=== PATIENT | female | born 1935 | race Caucasian/White ===

== ENCOUNTER 2019-12-01 07:45 | Day surgery (SDC) | payer MEDICARE, OTHER ==
[~2019-12-01] VITALS: Ht 160 cm; Wt 64.0 kg
[~2019-12-01 07:45] MED LIST: ALBU90OI INH; ATEN25; ATOR10; ATOR10 PO; ATORVASTATIN CA10 MG PO; Adult Low Dose81 MG PO; CALCA500CH PO; Carvedilol3.125 MG PO; DIGO.125; DOCU100; DOCU100 PO; DOXY100 PO; FLUSAL2505 INH; FURO20 PO; Flonase 0.05% N16 GM; Flovent Diskus50 MCG; HYDR1TAB94 PO; LEVO750 PO; LISI5 PO; OXYACE5T; POTA10T PO; PRED10 PO; PROAIR RESPICL90 MCG INH; Symbicort 16010.2 GM; THERA-D2000 UNIT PO; WARF2 PO; WARF2.5; WARF2.5 PO; WARF3 PO; WARF5; WARF5 PO
[2019-12-01 09:12] LABS: International Normalized Ratio 1.11; Prothrombin Time Results 11.8 Sec (9.7-11.5)
--- NOTE | 2019-12-01 14:49 | NUR ---
MANUAL PRESSURE HELD TO SITE [id number]. NO BLEEDING, OOZING OR HEMATOMA NOTED. KAMERON PATCH PLACED OVER SITE. PT REMINDED TO LAY FLAT AND NOT TO LIFT UP HER HEAD TO PREVENT BLEEDING. PT AWAITING ADMISSION TO PCU. WILL CONTINUE TO MONITOR WHILE IN THE [facility]ART [facility] RECOVER ROOM.
--- NOTE | 2019-12-01 14:59 | NUR ---
1500 Patient transafered to PCU #8 post sheath removeal. SBAR given at the bedside. RFA CDI with hannah patch in place. R brachial with tegaderm and hannah in place, CDI. Left radial with TR band in place and no air left in place at this time. VVS, A fib, note, Pulses palpable +1 DP and PT bilaterally. Family was here and went home, number on the chart for discharge tomorrow.
--- NOTE | 2019-12-01 15:26 | NUR ---
ARRIVAL TO UNIT Assumed care of pt upon arrival to unit at 1515. Bedside report received from heart center staff member. Pt transferred from [facility] to [facility] usling slider sheet and four staff members. Pt has left transradial site with deflated TR band in place. Per report, TR band deflated at 1500. Pt has right femoral artery access with Ross patch in place. Per report, hemostasis acheived at 1440 after manual pressure held. Dressing C/D/I. Site free of bruising, drainage, or hematoma. Color, sensation, pulses, capillary refill equal BUE and BLE. Pt has right brachial venous access from right heart cath. Site covered with tegaderm CHG. No drainage noted from site. 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 Per report, procedure done by Dr Tello. Activity restrictions for left arm and right groin reviewed with pt. Pt verbalized understanding and repeated back instrucitons. Bed in lowest position. Call light in reach. Pt denies need at this time. No family accompanied pt to unit.
--- NOTE | 2019-12-01 16:49 | NUR ---
HOME MEDICATION LIST Home medication list using medications that pt brought to hospital. Pt stores medications in a red purse and states these are the medications she is currently taking.
--- NOTE | 2019-12-01 17:33 | NUR ---
PATIENT PERMISSION PATIENT GAVE THIS STUDENT NURSE PERMISSION TO PROVIDE CARE ON 12/01/19 FROM [id number].
--- NOTE | 2019-12-01 19:48 | NUR ---
SUMMARY Procedural access sites stable. Left TR side had capillary bleed. 2 mL air reinstilled into TR band. After 30 minutes, band deflated without event. At this time, TR band has been removed. Tegaderm placed to site. Wrist immobilization board remains in place. Pt had difficulty voiding urine. Bladder scan revealed 600+ mL urine in bladder. Call placed to Dr Tello. Provider ordered straight cath. Pt reported abdominal distention and back pain. This was relieved after straight cath. No additional changes to initial assessment. Bedside report given to Irene CHRISTIANSON.
--- NOTE | 2019-12-02 04:38 | NUR ---
SHIFT SUMMARY: PATIENT TR BAND REMOVED AT APPROX 1900, OPSITE ON SITE WITH IMMOBILIZER AT WRIST. LEFT RADIAL/RIGHT BRACHIAL/RIGHT FEMORAL:ALL PULSES AND SENSATION INTACT, CAPILLARY REFILL <3 SECOUNDS WITH NO SIGN OF BLEED OR HEMATOMA. PATIENT TENDER BUT DENIES PAIN, HAS AMBULATED, NO ISSUES NOTED, VSS, CALL LIGHT WITHIN REACH AND USED APPROPRIATLY, BED LOW AND LOCKED.
[2019-12-02 06:00] LABS: International Normalized Ratio 1.07; Prothrombin Time Results 11.4 Sec (9.7-11.5)
[2019-12-02] MEDS ORDERED: CLOP75 PO (11:14)
--- NOTE | 2019-12-02 12:49 | NUR ---
DISCHARGE SUMMARY ASSUMED CARE OF PT AT APPROX 0700 THIS AM. DURING BEDSIDE REPORT THE LEFT RADIAL SITE NOTED TO HAVE BLOOD OOZING FROM SITE, DRIED AROUND THE EDGES; NOTIFIED DIRECTOR REGULATORY COMPLIANCE MORE; CONTINUED TO MONITOR T/O SHIFT WITH NO CHANGES. DR BENITES AT BEDSIDE THIS AM, REMOVED TEGADERM AND CLEANED SITE, HELD PRESSURE AND REPLACED DRESSING; NO BLEEDING, OOZING, BRUISING OR HEMATOMA NOTED FOR REMAINDER OF SHIFT OR DISCHARGE. RIGHT FEMORAL SITE C/D/I NO BLEEDING, BRUISING OR HEMATOMA NOTED AT SITE; SMALL KNOT NOTED BUT NO CHANGES TO T/O SHIFT; DR BENITES AT BEDSIDE, ORDES TO REMOVED DRESSING AND REPLACED WITH BANDAID. RIGHT BRACHAIL SITE HAS TEGADERM W/ CHG, DRESSING C/D/I. PT A&Ox4, FORGETFUL AT TIMES. REMINDED PT NOT TO USE THE LEFT ARM FOR TRANSFERING. PT DENIES PAIN; CHEST PAIN/PRESSURE, SOB, NAUSEA AND DIZZY/LIGHTHEADEDNESS. VSS. NO OTHER ACUTE CHANGES NOTED DURING SHIFT. PT AND SON, [place], EDUCATED ON DISCHARGE INSTRUCTIONS, MEDICATIONS, FOLLOW UP APPOINTMENTS AND RADIAL AND FEMORAL ACCESS. [facility] PER [facility]IENT REQUEST. PT LEFT ROOM AT 1250 VIA WHEELCHAIR; PLANS TO HAVE SON STAY THE NIGHT WITH HER. PT STABLE UPON DISCHARGE.
== END 2019-12-02 13:15 | disposition home or self-care (01) ==
LOC: MHTC 07:45 → PCU 13:47 → MHTC 12-02 13:15
PROVIDERS: Internal Medicine Interventional Cardiology; Pharmacist
PROC: B203YZZ Plain Radiography of Multiple Coronary Artery Bypass Grafts using Other Contrast (ICD-10-PCS; principal; 2019-12-01)
PROC: B201YZZ Plain Radiography of Multiple Coronary Arteries using Other Contrast (ICD-10-PCS; principal; 2019-12-01)
PROC: 4A023N7 Measurement of Cardiac Sampling and Pressure, Left Heart, Percutaneous Approach (ICD-10-PCS; principal; 2019-12-01)
DX: I25.119 Atherosclerotic heart disease of native coronary artery with unspecified angina pectoris (principal); I25.719 Atherosclerosis of autologous vein coronary artery bypass graft(s) with unspecified angina pectoris; I25.82 Chronic total occlusion of coronary artery; I10 Essential (primary) hypertension; J44.9 Chronic obstructive pulmonary disease, unspecified; E78.5 Hyperlipidemia, unspecified; I48.91 Unspecified atrial fibrillation; Z79.01 Long term (current) use of anticoagulants; G47.33 Obstructive sleep apnea (adult) (pediatric); Z79.82 Long term (current) use of aspirin; Z79.899 Other long term (current) drug therapy; Z87.891 Personal history of nicotine dependence; Z88.1 Allergy status to other antibiotic agents; Z88.8 Allergy status to other drugs, medicaments and biological substances
CPT/HCPCS: 36415; 51701; 85347; 85610; 93457; 94640; 94760; 99152; 99153; A9270; C1725; C1769; C1874; C1887; C1894; C9604; J1644; J2250; J3010; J7030; Q9967

== ENCOUNTER 2024-02-15 11:44 | Inpatient (IN) | payer MEDICARE, OTHER ==
[~2024-02-15] VITALS: Ht 160 cm; Wt 52.2 kg
[~2024-02-15 11:44] MED LIST changes: +CLOP75 PO
[2024-02-15] MEDS ORDERED: Diltiazem HCl 5 MG / ML 5ML Vial IV ONE (12:00)
[2024-02-15 12:15] LABS: BASOPHILS ABSOLUTE AUTO 0.07 K/mm3 (0.00-0.23); BASOPHILS PERCENT AUTO 1 % (0-2); EOSINOPHILS ABSOLUTE AUTO 0.13 K/mm3 (0.00-0.68); EOSINOPHILS PERCENT AUTO 1 % (0-6); Hematocrit 38.4 % (33.0-51.0); Hemoglobin 12.6 g/dL (11.5-16.0); IMMATURE GRAN ABSOLUTE AUTO 0.09 K/mm3 (0.00-0.10); IMMATURE GRAN PERCENT AUTO 1 % (0-1); LYMPHOCYTES ABSOLUTE AUTO 1.27 K/mm3 (0.84-5.20); LYMPHOCYTES PERCENT AUTO 9 % (21-46); MONOCYTES ABSOLUTE AUTO 1.06 K/mm3 (0.16-1.47); MONOCYTES PERCENT AUTO 8 % (4-13); Mean Corpuscular HGB 30.3 pg (26.0-34.0); Mean Corpuscular HGB Conc 32.8 g/dL (31.5-36.5); Mean Corpuscular Volume 92 fL (80-100); NEUTROPHILS ABSOLUTE AUTO 11.52 K/mm3 (1.96-9.15); NEUTROPHILS PERCENT AUTO 82 % (41-73); Platelet Count 167 K/mm3 (150-400); RDW Coefficient Variation 14.5 % (11.7-14.2); RDW Standard Deviation 48.9 fL (35.1-46.3); Red Blood Cell Count 4.16 M/mm3 (3.80-5.20); White Blood Cell Count 14.14 K/mm3 (4.00-11.30)
[2024-02-15 12:30] LABS: Albumin, Blood 3.1 g/dL (3.4-5.0); Albumin/Globulin Ratio 0.8 (0.8-1.8); Bilirubin, Total 0.5 mg/dL (0.1-1.0); Bun/Creatinine Ratio 20.9 (12.0-20.0); Calcium, Blood 9.1 mg/dL (8.5-10.1); Creatinine, Blood 0.57 mg/dL (0.40-1.00); Globulin, Blood 3.8 g/dL (2.2-4.0); Potassium, Blood 4.2 mmol/L (3.5-5.5); Total Protein, Blood 6.9 g/dL (6.4-8.2)
[2024-02-15] MEDS ORDERED: Aspirin 325 MG Tab PO ONE (13:15)
[2024-02-15 13:38] LABS: International Normalized Ratio 1.35; Prothrombin Time Results 13.9 Sec (9.7-11.5)
[2024-02-15] MEDS ORDERED: Ipratropium/Albuterol SulF 2.5-0.5MG/3 ML Amp INH PRN (14:30)
[2024-02-15] MEDS ORDERED: LevoFLOXacin 750 MG/D5W 150ML 150 ML IV SCH (14:33)
[2024-02-15] MEDS ORDERED: Carvedilol 6.25 MG Tab PO SCH (15:00)
[2024-02-15 16:20] VITALS: BP 106/61
[2024-02-15] MEDS ORDERED: Coumadin2 MG PO (16:38)
[2024-02-15] MEDS ORDERED: Docusate Sodium 100 MG Cap PO PRN (18:00)
[2024-02-15] MEDS ORDERED: Furosemide 10 MG / ML 2ML Vial IV SCH (18:00)
--- NOTE | 2024-02-15 18:33 | NUR ---
THIS RN OVERSAW AND REVIEVED STUDENT RN'S CHARTING AND ASSESSMENTS.
--- NOTE | 2024-02-15 18:38 | NUR ---
ARRIVAL UPON PCU PT ARRIVED TO PCU AT 1620 ON GURNEY AND ABLE TO TRANSPORT TO HOSPITAL BED. RECEIVED REPORT FROM ER NURSE SILVIO AT 1544 WITH NESTOR PRESENT. PT ARRIVED ON 3L IN THE LOW 90'S. PT APPEARED SOB AFTER AMBULATING TO BEDSIDE COMMODE, AND ONLY ABLE TO COMMUNICATE 3-4 WORDS WITHOUT HAVING TO STOP TO CATCH BREATH. BILATERAL CRACKLES IN BASE OF LUNGS. PT IS A/O X4. IV SALINE LOCK IN LEFT HAND. PT IS ORIENTED TO ROOM WITH CALL LIGHT IN REACH. PT SISTER WAS CALLED AND UPDATED. PT CONTUING TO BELCH PERIODICALLY AND OCCASIONALLY ENORES ABDOMINAL PAIN. NO NEW CHANGES FROM ARRIVAL TO UNIT.
[2024-02-15 20:00] VITALS: BP 103/77
[2024-02-15] MEDS ORDERED: Warfarin Sodium 2 MG Tab PO SCH (20:00)
--- NOTE | 2024-02-15 20:39 | NUR ---
ASSUMPTION OF CARE THIS RN ASSUMED CARE OF PT AT 1900, REPORT FROM NESTOR RN AND RN IP STUDENT. PT LYING IN HOSPITAL BED, WATCHING TV. PLEASANT AND COOPERATIVE WITH CARE. VSS; BP 103-77, SR HR OF 77, 97.9 TEMP, 98% ON 2 LPM NC. PT DENIES CP/PRESSURE, SOB, DIZZINESS, N/V. THIS RN NOTES MILD DYSPNEA WITH CONVERSATION, SPO2 MAINTAINS. PT DENIES SOB EVEN WHEN OCCURRING. PT DENIES ISSUES GI/. DENIES ANY NEEDS OR CONCERNS AT THIS TIME. CALL LIGHT IN REACH.
[2024-02-16] VITALS: BP 97/50
[2024-02-16 03:53] VITALS: BP 108/69
[2024-02-16 04:14] LABS: Bun/Creatinine Ratio 20.4 (12.0-20.0); Calcium, Blood 9.2 mg/dL (8.5-10.1); Creatinine, Blood 0.69 mg/dL (0.40-1.00); Potassium, Blood 3.8 mmol/L (3.5-5.5)
[2024-02-16 04:17] LABS: International Normalized Ratio 1.9; Prothrombin Time Results 19.2 Sec (9.7-11.5)
--- NOTE | 2024-02-16 06:22 | NUR ---
SHIFT SUMMARY PT REMAINS A&O X4, COOPERATIVE WITH CARE. VSS; SBP 97 - 108 (MAPS GREATER THAN 60), SR WITH PVC'S HR IN 70 - 80'S, AFEBRILE, SPO2 GREATER THAN 94%. PT TITRATED TO 1 LPM WHILE SLEEPING, NO EVENTS. PT UP TO BSC WITH 1 LPM NC, SPO2 DECREASED TO 86% BUT PT WAS ABLE TO DO DEEP BREATHING AND SPO2 INCREASED. PT MILDLY SOB DURING ACTIVITY ALTHOUGH PT DENIES AT TIMES. PT DENIES CP/PRESSURE, N/V, GENERAL PAIN. PT DOES ENDORSE MILD DIZZINESS WHEN "FIRST SITTING UP OR STANDING". PT ENCOURAGED TO TAKE HER TIME, PT TOLERATING AMBULATION WELL AT THIS TIME. PT REPORTS ABD PAIN IS "BETTER" BUT IS THERE ON AND OFF. PT DENIES ISSUES/CONCERNS GI/. PT WITH APPROX. 900 MLS UOP. NO ACUTE CHANGES DURING SHIFT. CARLOS UPDATE ONCOMING RN. CALL LIGHT IN REACH.
[2024-02-16 07:39] VITALS: BP 107/62
[2024-02-16] MEDS ORDERED: Cholecalciferol 1000 Unit Tablet (=25MCG) PO SCH (09:00)
[2024-02-16] MEDS ORDERED: Atorvastatin 10 MG Tab PO SCH (09:00)
[2024-02-16] MEDS ORDERED: Potassium Chloride 10 Meq Tablet SA PO SCH (09:00)
[2024-02-16] MEDS ORDERED: Fluticasone 0.05% Nasal Spray SCH (09:00)
[2024-02-16] MEDS ORDERED: Preservision S1 EACH PO (13:03)
[2024-02-16 15:05] VITALS: BP 105/64
[2024-02-16 17:09] VITALS: BP 115/55
--- NOTE | 2024-02-16 17:25 | NUR ---
TRANSFER UPDATE REPORT GIVEN TO MED FLOOR MEGHAN NELSON AT 1623. PT TRANFERED AT 1700 VIA HOSPITAL BED AND ON RA. PT BELONGINGS IN BAG AND TRANFERED WITH PT ALONG WITH CHART.
--- NOTE | 2024-02-16 17:27 | NUR ---
PHYSICIAN CONTACT CRITICAL VALUE TROPONIN [address] REBOLLAR, NO NEW ORDERS RECEIVED. VALUE IS LESS THAN PREVIOUS DRAW. CALL LIGHT IN REACH, CARES ONGOING.
--- NOTE | 2024-02-16 17:36 | NUR ---
PT SISTER , JAYESH, CONTACTED AND UPDATED OF TRANSFER TO ROOM 305. JAYESH PROVIDED WITH PT DIRECT ROOM PHONE NUMBER.
--- NOTE | 2024-02-16 17:53 | NUR ---
SHIFT SUMMARY PATIENT TRANSFER TO FLOOR 0734. A/O X4. MEDICATIONS DISCUSSED, GOOD HISTORIAN. SKIN IN GOOD CONDITION. ON TELE. IV FLUSHES WELL, SECURED WITH COBAN. SITTING AT EDGE OF BED FOR DINNER. PHONE AND CALL LIGHT IN REACH, BED LOW POSITION, ABLE TO MAKE NEEDS KNOWN. CARES ONGOING
[2024-02-16] MEDS ORDERED: Warfarin Sodium 1 MG Tab PO ONE (18:00)
[2024-02-16 19:36] VITALS: BP 95/59
[2024-02-16] MEDS ORDERED: PRESERVISION AREDS PO SCH (21:00)
[2024-02-17 03:11] VITALS: BP 116/65
--- NOTE | 2024-02-17 04:51 | NUR ---
SHIFT SUMMARY: ANNA IS A&OX4. VSS, NO ACUTE EVENTS OVERNIGHT. SHE IS TOLERATING PO INTAKE WELL, IS A ONE-PERSON ASSIST WITH THE FWW, AND DENIES PAIN. SHE DID REPORT A HEADACHE AT THE BEGINNING OF SHIFT WHICH SHE STATED RESOLVED ON IT'S OWN SHORTLY AFTER IT BEGAN. IV TO R FOREARM PATENT. SHE IS LYING IN BED WITH THE CALL LIGHT IN REACH. WILL GIVE REPORT TO DAY SHIFT RN.
[2024-02-17 05:01] LABS: Hematocrit 36.4 % (33.0-51.0); Hemoglobin 11.8 g/dL (11.5-16.0); Mean Corpuscular HGB 30.3 pg (26.0-34.0); Mean Corpuscular HGB Conc 32.4 g/dL (31.5-36.5); Mean Corpuscular Volume 93 fL (80-100); Mean Platelet Volume 10.1 fL (9.1-12.4); Platelet Count 183 K/mm3 (150-400); RDW Coefficient Variation 14.2 % (11.7-14.2); RDW Standard Deviation 48.8 fL (35.1-46.3); White Blood Cell Count 8.07 K/mm3 (4.00-11.30)
[2024-02-17 05:19] LABS: Calcium, Blood 9.2 mg/dL (8.5-10.1); Creatinine, Blood 0.73 mg/dL (0.40-1.00); Potassium, Blood 3.8 mmol/L (3.5-5.5)
[2024-02-17 05:21] LABS: International Normalized Ratio 1.79; Prothrombin Time Results 18.2 Sec (9.7-11.5)
--- NOTE | 2024-02-17 05:37 | NUR ---
RECEIVED CALL FROM PCU ENERGY CONTROL OFFICER THAT PT HAD DEMONSTRATED A 15-BEAT RUN OF VTACH. PT ASYMPTOMATIC. CALLED ON-CALL HOSPITALIST AND RECEIVED ORDER TO ADD MAGNESIUM TO MORNING LABS AND A ONE-TIME DOSE OF POTASSIUM CHLORIDE. PLACED ORDERS AND CALLED LAB TO REQUEST MAGNESIUM BE ADDED ON.
[2024-02-17] MEDS ORDERED: Potassium Chloride 10 Meq Tablet SA PO ONE (05:50)
[2024-02-17 05:57] LABS: Magnesium, Blood 1.9 mg/dL (1.6-2.4)
[2024-02-17 07:25] VITALS: BP 120/71
[2024-02-17] MEDS ORDERED: NS 250 ML IV PRN (08:50)
[2024-02-17 15:07] VITALS: BP 97/34
[2024-02-17 15:41] VITALS: BP 120/64
--- NOTE | 2024-02-17 17:11 | NUR ---
SHIFT SUMMARY PATIENT HAD PT EVAL THIS SHIFT, SNF RECOMMENDATION. PATIENT A/O X4 AND DECLINING SNF PLACEMENT, LIVES AT HOME WITH SISTER WHO IS SUPPORTIVE OF PATIENT'S WISHES. PATIENT ABLE TO TRANSFER WITH 1 ASSIST TO CHAIR AND TO BATHROOM. TOLERATING IV ABX WELL. EATING AND DRINKING ADEQUATE AMOUNTS. NO C/O PAIN. CM IN ROOM TO DISCUSS HOME HEALTH OPTIONS TO WHICH PATIENT IS AGREEABLE, DOC MADE AWARE OF PATIENT CHOICE. VSS AND WNL, ONE LOW BP READING WHICH ON RECHECK WAS ACCEPTABLE. CALL LIGHT IN REACH, ABLE TO MAKE NEEDS KNOWN. CARES ONGOING.
[2024-02-17] MEDS ORDERED: Warfarin Sodium 2 MG Tab PO ONE (18:00)
--- NOTE | 2024-02-17 18:34 | NUR ---
LOST IV ACCESS, CONTACTED DR REBOLLAR FOR LASIX ROUTE CHANGE TO PO, ORDERED SKIP TONIGHT DOSE AND DC. BETHANY FOR NO IV. CARES ONGOING.
[2024-02-17 19:41] VITALS: BP 110/68
[2024-02-18 02:18] VITALS: BP 116/72
--- NOTE | 2024-02-18 03:33 | NUR ---
SHIFT SUMMARY Patient alert & oriented x4, calls appropriately. Walks to bathroom w/ staff SBA/supervision steady gait uses FWW. Patient slept well during the night. Vitals stable. Patient states she does not want to go to SNF, she wants homehealth & to go home w/ sister who is 18 years younger & able to help take care of her. Will continue plan of care, awaiting discharge planning.
[2024-02-18 05:06] LABS: International Normalized Ratio 1.86; Prothrombin Time Results 18.9 Sec (9.7-11.5)
[2024-02-18 05:27] LABS: Bun/Creatinine Ratio 23.6 (12.0-20.0); Calcium, Blood 9.6 mg/dL (8.5-10.1); Creatinine, Blood 0.81 mg/dL (0.40-1.00); Potassium, Blood 3.8 mmol/L (3.5-5.5)
[2024-02-18 07:32] VITALS: BP 132/68
[2024-02-18] MEDS ORDERED: Furosemide 20 MG Tab PO SCH (09:00)
[2024-02-18] MEDS ORDERED: FURO20 PO (14:14)
[2024-02-18] MEDS ORDERED: LEVO750 PO (14:15)
[2024-02-18 14:59] VITALS: BP 111/67
--- NOTE | 2024-02-18 15:34 | NUR ---
NOTE: NOTIFIED BY TELE THE PT HAD 3 SEPARATE EVENTS OF 10-[address] SU NOTIFIED AND STATES THE PT IS STILL OKAY FOR DISCHARGE. NO NEW ORDERS AT THIS TIME.
--- NOTE | 2024-02-18 16:23 | NUR ---
DISCHARGE NOTE PT DISCHARGED TO HOME WITH HOME HEALTH, PICKED UP BY HER SISTER. TELE REMOVED AND RETURNED. MEDICATIONS FAXED TO THE PHARMACY OF HER CHOICE. PERSONAL BELONGINGS RETURNED. DISCHARGE EDUCATION AND INFORMATION PROVIDED. TAKEN TO THE VEHICLE BY WHEELCHAIR.
[2024-02-18] MEDS ORDERED: Warfarin Sodium 3 MG Tab PO SCH (18:00)
== END 2024-02-18 16:24 | disposition home health service (06) | DRG 280 ==
LOC: ER 11:44 → PCU 14:27 → MEDS 14:27 → PCU 16:28 → MEDS 02-16 16:57
PROVIDERS: Emergency Medicine; Pharmacist; ADMIT Internal Medicine
DX: I13.0 Hypertensive heart and chronic kidney disease with heart failure and stage 1 through stage 4 chronic kidney disease, or unspecified chronic kidney disease (principal); I50.33 Acute on chronic diastolic (congestive) heart failure; I21.A1 Myocardial infarction type 2; J96.01 Acute respiratory failure with hypoxia; J18.9 Pneumonia, unspecified organism; J44.0 Chronic obstructive pulmonary disease with (acute) lower respiratory infection; K55.1 Chronic vascular disorders of intestine; I48.20 Chronic atrial fibrillation, unspecified; G45.3 Amaurosis fugax; Z66 Do not resuscitate; N18.9 Chronic kidney disease, unspecified; I25.10 Atherosclerotic heart disease of native coronary artery without angina pectoris; I77.1 Stricture of artery; I70.1 Atherosclerosis of renal artery; I70.203 Unspecified atherosclerosis of native arteries of extremities, bilateral legs; N20.0 Calculus of kidney; G47.33 Obstructive sleep apnea (adult) (pediatric); E78.5 Hyperlipidemia, unspecified; N83.201 Unspecified ovarian cyst, right side; T50.1X6A Underdosing of loop [high-ceiling] diuretics, initial encounter; Z91.138 Patient's unintentional underdosing of medication regimen for other reason; I25.2 Old myocardial infarction; Z88.8 Allergy status to other drugs, medicaments and biological substances; Z88.0 Allergy status to penicillin; Z79.01 Long term (current) use of anticoagulants; Z79.82 Long term (current) use of aspirin; Z79.51 Long term (current) use of inhaled steroids; Z79.02 Long term (current) use of antithrombotics/antiplatelets; Z79.899 Other long term (current) drug therapy; Z87.891 Personal history of nicotine dependence; Z95.1 Presence of aortocoronary bypass graft; Z95.820 Peripheral vascular angioplasty status with implants and grafts; I48.91 Unspecified atrial fibrillation
CPT/HCPCS: 36415; 71045; 74176; 80048; 80053; 83690; 83735; 83880; 84145; 84484; 85025; 85027; 85610; 85651; 93005; 93010; 93306; 94760; 94761; 94762; 96365-59; 96375-59; 97116; 97162; 97530; 99285-25; A9270; J1940; J1956

== ENCOUNTER 2024-04-17 10:21 | Day surgery (SDC) | payer MEDICARE, OTHER ==
[~2024-04-17] VITALS: Ht 157.5 cm; Wt 52.8 kg
[~2024-04-17 10:21] MED LIST changes: +Coumadin2 MG PO; +NS 500 ML IV ONE; +Preservision S1 EACH PO; +Triamcinolone Inj Susp 40 MG / ML 1ML Vial ONE
[2024-04-17] MEDS ORDERED: ELIQUIS5 M2 PO (10:42)
[2024-04-17] MEDS ORDERED: NS 500 ML IV ONE (10:56)
[2024-04-17] MEDS ORDERED: FentaNYL Citrate 50 MCG/ML 2 ML Injection ONE (11:14)
[2024-04-17] MEDS ORDERED: Midazolam HCl 1MG / ML 2ML Vial ONE (11:14)
[2024-04-17] MEDS ORDERED: Balanced Salt Epinephrine Irrigation Solution 500 mL IR ONE (11:21)
[2024-04-17] MEDS ORDERED: Moxifloxacin HCL 0.5 MG/0.1 ML 0.4MLSYR XX ONE (11:21)
[2024-04-17] MEDS ORDERED: Lidocaine HCl/Pf 1% 5 ML VIAL XX ONE (11:21)
[2024-04-17 11:38] VITALS: BP 124/72
--- NOTE | 2024-04-17 12:05 | NUR ---
04/17/24 1205 FARZAD OCAMPO HER SISTER WAS IN FOR DC INSTRUCTIONS. VERY PLEASANT PT AND FAMILY
== END 2024-04-17 12:05 | disposition home or self-care (01) ==
LOC: ORSCSDS 10:21
PROVIDERS: Ophthalmology
PROC: 08RJ3JZ Replacement of Right Lens with Synthetic Substitute, Percutaneous Approach (ICD-10-PCS; principal; 2024-04-17 11:30)
DX: H25.811 Combined forms of age-related cataract, right eye (principal); H35.30 Unspecified macular degeneration; I10 Essential (primary) hypertension; E78.5 Hyperlipidemia, unspecified; G47.33 Obstructive sleep apnea (adult) (pediatric); I73.9 Peripheral vascular disease, unspecified; I25.2 Old myocardial infarction; I48.91 Unspecified atrial fibrillation; I25.10 Atherosclerotic heart disease of native coronary artery without angina pectoris; J44.9 Chronic obstructive pulmonary disease, unspecified; Z79.02 Long term (current) use of antithrombotics/antiplatelets; Z79.01 Long term (current) use of anticoagulants; Z79.899 Other long term (current) drug therapy
CPT/HCPCS: J2001; J2250; J3010; J3301; J7040; V2632

== ENCOUNTER 2024-04-24 09:41 | Day surgery (SDC) | payer MEDICARE, OTHER ==
[~2024-04-24] VITALS: Ht 157.5 cm; Wt 52.7 kg
[~2024-04-24 09:41] MED LIST changes: +Balanced Salt Epinephrine Irrigation Solution 500 mL IR SCH; +ELIQUIS5 M2 PO; +FentaNYL Citrate 50 MCG/ML 2 ML Injection ONE; +Lidocaine HCl/Pf 1% 5 ML VIAL XX SCH; +Midazolam HCl 1MG / ML 2ML Vial ONE; +Moxifloxacin HCL 0.5 MG/0.1 ML 0.4MLSYR LEFTEYE SCH; +PHENYLEPHRINE\\TROPICAMIDE\\TETRACAINE OPHTHALMIC DILATING SOLN LEFTEYE PRN; +Povidone-Iodine 450 DROP/30 ML Solution LEFTEYE SCH; +Triamcinolone Inj Susp 40 MG / ML 1ML Vial INJ SCH
[2024-04-24] MEDS ORDERED: NS 500 ML IV ONE (09:54)
--- NOTE | 2024-04-24 09:54 | NUR ---
04/24/24 0954 CORY POLANCO PT ON 1L VIA NC O2 VIA CONCENTRATOR - ESCORTED BY SISTER
[2024-04-24] MEDS ORDERED: TRELEGY ELLIPT1 EACH IH (10:00)
[2024-04-24] MEDS ORDERED: Tetracaine HCl 0.5% Opth Soln 15 ml LEFTEYE ONE (10:40)
[2024-04-24 11:03] VITALS: BP 133/66
== END 2024-04-24 11:24 | disposition home or self-care (01) ==
LOC: ORSCSDS 09:41
PROVIDERS: Ophthalmology
PROC: 08RK3JZ Replacement of Left Lens with Synthetic Substitute, Percutaneous Approach (ICD-10-PCS; principal; 2024-04-24 11:00)
DX: H25.812 Combined forms of age-related cataract, left eye (principal); Z96.1 Presence of intraocular lens; I48.91 Unspecified atrial fibrillation; E78.5 Hyperlipidemia, unspecified; I10 Essential (primary) hypertension; I25.10 Atherosclerotic heart disease of native coronary artery without angina pectoris; G47.33 Obstructive sleep apnea (adult) (pediatric); I21.9 Acute myocardial infarction, unspecified; Z79.01 Long term (current) use of anticoagulants; Z79.02 Long term (current) use of antithrombotics/antiplatelets; Z79.899 Other long term (current) drug therapy
CPT/HCPCS: J2250; J3010; J3301; J7040; V2632

== ENCOUNTER 2024-10-28 12:25 | Observation (INO) | payer MEDICARE, OTHER ==
[~2024-10-28] VITALS: Ht 149.9 cm; Wt 52.2 kg
[~2024-10-28 12:25] MED LIST changes: -Balanced Salt Epinephrine Irrigation Solution 500 mL IR SCH; +ELIQUIS2.5 MG PO; -ELIQUIS5 M2 PO; -FentaNYL Citrate 50 MCG/ML 2 ML Injection ONE; -Lidocaine HCl/Pf 1% 5 ML VIAL XX SCH; -Midazolam HCl 1MG / ML 2ML Vial ONE; -Moxifloxacin HCL 0.5 MG/0.1 ML 0.4MLSYR LEFTEYE SCH; -NS 500 ML IV ONE; -PHENYLEPHRINE\\TROPICAMIDE\\TETRACAINE OPHTHALMIC DILATING SOLN LEFTEYE PRN; -Povidone-Iodine 450 DROP/30 ML Solution LEFTEYE SCH; +TRELEGY ELLIPT1 EACH IH; -Triamcinolone Inj Susp 40 MG / ML 1ML Vial INJ SCH; -Triamcinolone Inj Susp 40 MG / ML 1ML Vial ONE
[2024-10-28 13:37] LABS: BASOPHILS ABSOLUTE AUTO 0.08 K/mm3 (0.00-0.23); BASOPHILS PERCENT AUTO 1 % (0-2); EOSINOPHILS ABSOLUTE AUTO 0.27 K/mm3 (0.00-0.68); EOSINOPHILS PERCENT AUTO 3 % (0-6); Hematocrit 29.2 % (33.0-51.0); Hemoglobin 9.4 g/dL (11.5-16.0); IMMATURE GRAN ABSOLUTE AUTO 0.07 K/mm3 (0.00-0.10); IMMATURE GRAN PERCENT AUTO 1 % (0-1); LYMPHOCYTES ABSOLUTE AUTO 2.23 K/mm3 (0.84-5.20); LYMPHOCYTES PERCENT AUTO 20 % (21-46); MONOCYTES ABSOLUTE AUTO 0.97 K/mm3 (0.16-1.47); MONOCYTES PERCENT AUTO 9 % (4-13); Mean Corpuscular HGB 30.4 pg (26.0-34.0); Mean Corpuscular HGB Conc 32.2 g/dL (31.5-36.5); Mean Corpuscular Volume 95 fL (80-100); NEUTROPHILS ABSOLUTE AUTO 7.37 K/mm3 (1.96-9.15); NEUTROPHILS PERCENT AUTO 67 % (41-73); Platelet Count 286 K/mm3 (150-400); RDW Coefficient Variation 13.8 % (11.7-14.2); RDW Standard Deviation 47.5 fL (35.1-46.3); Red Blood Cell Count 3.09 M/mm3 (3.80-5.20); White Blood Cell Count 10.99 K/mm3 (4.00-11.30)
[2024-10-28 13:52] LABS: Albumin, Blood 2.7 g/dL (3.4-5.0); Albumin/Globulin Ratio 0.7 (0.8-1.8); Bilirubin, Total 0.4 mg/dL (0.1-1.0); Bun/Creatinine Ratio 55.5 (12.0-20.0); Calcium, Blood 9.2 mg/dL (8.5-10.1); Creatinine, Blood 0.6 mg/dL (0.40-1.00); Potassium, Blood 4.1 mmol/L (3.5-5.5); Total Protein, Blood 6.7 g/dL (6.4-8.2)
[2024-10-28 14:08] LABS: Thyroid Stimulating Hormone 4.61 uIU/mL (0.360-4.800)
[2024-10-28 14:18] LABS: Influenza A, PCR NEGATIVE (NEGATIVE); Influenza B, PCR NEGATIVE (NEGATIVE); Resp Syncytial Virus, PCR NEGATIVE (NEGATIVE); SARS-Cov-2 (COVID-19) PCR, MMC NEGATIVE (NEGATIVE)
[2024-10-28 14:29] LABS: Source, Urine Straight Cath
[2024-10-28 14:33] LABS: Appearance, Urine Clear (Clear); Bilirubin, Urine Neg (Neg); Blood, Urine Neg (Neg); Color, Urine Yellow (P-Yellow); Glucose Qualitative, Urine Neg (Neg); Ketones, Urine Neg (Neg); Leukocyte Esterase, Urine Neg (Neg); Nitrite, Urine Neg (Neg); Protein, Urine Neg (Neg); Specific Gravity, Urine 1.015 (1.003-1.022); Urobilinogen, Urine NORM (Normal)
[2024-10-28] MEDS ORDERED: Ondansetron HCl 2 MG / ML 2ML Vial IV PRN (17:30)
[2024-10-28] MEDS ORDERED: NS 1,000 ML IV SCH (17:30)
[2024-10-28 18:05] LABS: Percent Saturation 28.3 % (15.0-50.0)
[2024-10-28] MEDS ORDERED: Tiotropium Bromide 2.5 MCG/ACT MIST INHAL (10 ACT/4 GM) INH SCH (18:50)
[2024-10-28] MEDS ORDERED: Mometasone/Formoterol MDI 100/5 mcg 13 GM INH SCH (18:50)
[2024-10-28] MEDS ORDERED: TRELEGY ELLIPT1 EAC1 INH (19:43)
[2024-10-28 19:48] VITALS: BP 110/72
[2024-10-28] MEDS ORDERED: FLU VACC TS2024-25(6MOS UP)/PF 45 MCG/0.5 ML SYRINGE IM ONE (20:00)
[2024-10-28] MEDS ORDERED: Atorvastatin 10 MG Tab PO SCH (21:00)
[2024-10-28] MEDS ORDERED: Carvedilol 6.25 MG Tab PO SCH (21:00)
[2024-10-28] MEDS ORDERED: Apixaban 5 MG Tab PO SCH (21:00)
[2024-10-28] MEDS ORDERED: Pantoprazole Sodium 40 MG Injection IV ONE (21:45)
[2024-10-28 22:07] LABS: Hematocrit 25.7 % (33.0-51.0); Hemoglobin 8.1 g/dL (11.5-16.0)
[2024-10-29] VITALS (12 sets, daily range): BP systolic 92–138; BP diastolic 51–93
[2024-10-29 05:12] LABS: BASOPHILS ABSOLUTE AUTO 0.08 K/mm3 (0.00-0.23); BASOPHILS PERCENT AUTO 1 % (0-2); EOSINOPHILS ABSOLUTE AUTO 0.02 K/mm3 (0.00-0.68); EOSINOPHILS PERCENT AUTO 0 % (0-6); Hematocrit 22.4 % (33.0-51.0); Hemoglobin 7.1 g/dL (11.5-16.0); IMMATURE GRAN ABSOLUTE AUTO 0.12 K/mm3 (0.00-0.10); IMMATURE GRAN PERCENT AUTO 1 % (0-1); LYMPHOCYTES ABSOLUTE AUTO 2.41 K/mm3 (0.84-5.20); LYMPHOCYTES PERCENT AUTO 15 % (21-46); MONOCYTES ABSOLUTE AUTO 1.49 K/mm3 (0.16-1.47); MONOCYTES PERCENT AUTO 10 % (4-13); Mean Corpuscular HGB 30.2 pg (26.0-34.0); Mean Corpuscular HGB Conc 31.7 g/dL (31.5-36.5); Mean Corpuscular Volume 95 fL (80-100); NEUTROPHILS ABSOLUTE AUTO 11.55 K/mm3 (1.96-9.15); NEUTROPHILS PERCENT AUTO 74 % (41-73); NRBC ABSOLUTE 0.02 K/mm3 (0.00-0.02); NRBC Auto 0.1 /100 WBC (0.0-0.2); Platelet Count 221 K/mm3 (150-400); RDW Coefficient Variation 14.1 % (11.7-14.2); RDW Standard Deviation 47.8 fL (35.1-46.3); Red Blood Cell Count 2.35 M/mm3 (3.80-5.20); White Blood Cell Count 15.67 K/mm3 (4.00-11.30)
[2024-10-29 07:32] LABS: Albumin, Blood 2.5 g/dL (3.4-5.0); Albumin/Globulin Ratio 0.8 (0.8-1.8); Bilirubin, Total 0.2 mg/dL (0.1-1.0); Bun/Creatinine Ratio 60.6 (12.0-20.0); Calcium, Blood 8.9 mg/dL (8.5-10.1); Creatinine, Blood 0.68 mg/dL (0.40-1.00); Globulin, Blood 3.2 g/dL (2.2-4.0); Magnesium, Blood 2.1 mg/dL (1.6-2.4); Potassium, Blood 3.8 mmol/L (3.5-5.5); Total Protein, Blood 5.7 g/dL (6.4-8.2)
[2024-10-29] MEDS ORDERED: Pantoprazole Sodium 40 MG Injection IV SCH (09:00)
[2024-10-29] MEDS ORDERED: Acetaminophen 325 MG TABLET PO PRN (09:40)
[2024-10-29 11:57] LABS: Hematocrit 21.2 % (33.0-51.0); Hemoglobin 6.8 g/dL (11.5-16.0)
[2024-10-29] MEDS ORDERED: NS 500 ML IV SCH (12:15)
[2024-10-29 19:15] LABS: Hematocrit 26.3 % (33.0-51.0); Hemoglobin 8.6 g/dL (11.5-16.0)
[2024-10-29 23:22] LABS: Hematocrit 25.1 % (33.0-51.0); Hemoglobin 8.1 g/dL (11.5-16.0)
[2024-10-30 03:45] LABS: Hematocrit 23.4 % (33.0-51.0); Hemoglobin 7.5 g/dL (11.5-16.0)
[2024-10-30 05:02] VITALS: BP 134/70
[2024-10-30 07:31] LABS: Hematocrit 23.1 % (33.0-51.0); Hemoglobin 7.7 g/dL (11.5-16.0)
[2024-10-30 07:36] VITALS: BP 131/61
[2024-10-30 12:04] LABS: Hematocrit 24.8 % (33.0-51.0)
[2024-10-30] MEDS ORDERED: PANT20 PO (12:33)
== END 2024-10-30 13:30 | disposition home or self-care (01) ==
LOC: ER 12:25 → MEDS 12:26 → ERHOLD 12:26 → MEDS 19:39
PROVIDERS: Emergency Medicine; Internal Medicine; Nurse Practitioner Acute Care; ADMIT Student in an Organized Health Care Education/Training Program
DX: R53.1 Weakness (principal); D64.9 Anemia, unspecified; I21.A1 Myocardial infarction type 2; J44.9 Chronic obstructive pulmonary disease, unspecified; I11.0 Hypertensive heart disease with heart failure; I50.9 Heart failure, unspecified; I48.20 Chronic atrial fibrillation, unspecified; I73.9 Peripheral vascular disease, unspecified; I25.10 Atherosclerotic heart disease of native coronary artery without angina pectoris; S81.801D Unspecified open wound, right lower leg, subsequent encounter; E44.0 Moderate protein-calorie malnutrition; Z68.23 Body mass index [BMI] 23.0-23.9, adult; Z87.891 Personal history of nicotine dependence; Z79.01 Long term (current) use of anticoagulants; Z79.899 Other long term (current) drug therapy; Z99.81 Dependence on supplemental oxygen; Z88.0 Allergy status to penicillin; Z88.8 Allergy status to other drugs, medicaments and biological substances; Z95.5 Presence of coronary angioplasty implant and graft; Z90.49 Acquired absence of other specified parts of digestive tract
CPT/HCPCS: 0241U; 36415; 36430; 71045; 74177; 80053; 81003; 82728; 83540; 83550; 83690; 83735; 84443; 84484; 85014; 85018; 85025; 86850; 86900; 86901; 86923; 93005; 93010; 94640; 94664; 94760; 96374; 96375; 96376; 99285-25; A9270; G0378; J2405; J2470; J7030; P9016; Q9967

== ENCOUNTER 2024-12-14 13:07 | Emergency (ER) | payer MEDICARE, OTHER ==
[~2024-12-14] VITALS: Ht 157.5 cm; Wt 59.0 kg
[~2024-12-14 13:07] MED LIST changes: +PANT20 PO; +TRELEGY ELLIPT1 EAC1 INH
[2024-12-14 14:13] LABS: BASOPHILS ABSOLUTE AUTO 0.06 K/mm3 (0.00-0.23); BASOPHILS PERCENT AUTO 1 % (0-2); EOSINOPHILS ABSOLUTE AUTO 0.13 K/mm3 (0.00-0.68); EOSINOPHILS PERCENT AUTO 2 % (0-6); Hematocrit 37.2 % (33.0-51.0); Hemoglobin 11.9 g/dL (11.5-16.0); IMMATURE GRAN ABSOLUTE AUTO 0.03 K/mm3 (0.00-0.10); IMMATURE GRAN PERCENT AUTO 0 % (0-1); LYMPHOCYTES PERCENT AUTO 22 % (21-46); MONOCYTES ABSOLUTE AUTO 0.76 K/mm3 (0.16-1.47); MONOCYTES PERCENT AUTO 9 % (4-13); Mean Corpuscular HGB 30.1 pg (26.0-34.0); Mean Corpuscular Volume 94 fL (80-100); Mean Platelet Volume 9.5 fL (9.1-12.4); NEUTROPHILS ABSOLUTE AUTO 5.96 K/mm3 (1.96-9.15); NEUTROPHILS PERCENT AUTO 67 % (41-73); Platelet Count 208 K/mm3 (150-400); RDW Coefficient Variation 14.4 % (11.7-14.2); RDW Standard Deviation 50.3 fL (35.1-46.3); Red Blood Cell Count 3.96 M/mm3 (3.80-5.20); White Blood Cell Count 8.84 K/mm3 (4.00-11.30)
[2024-12-14 14:40] LABS: Albumin, Blood 3.5 g/dL (3.4-5.0); Albumin/Globulin Ratio 0.9 (0.8-1.8); Bilirubin, Total 0.4 mg/dL (0.1-1.0); Bun/Creatinine Ratio 26.1 (12.0-20.0); Calcium, Blood 9.7 mg/dL (8.5-10.1); Creatinine, Blood 0.61 mg/dL (0.40-1.00); Globulin, Blood 3.9 g/dL (2.2-4.0); Potassium, Blood 4.1 mmol/L (3.5-5.5); Total Protein, Blood 7.4 g/dL (6.4-8.2)
[2024-12-14] MEDS ORDERED: Furosemide 20 MG Tab PO ONE (19:00)
[2024-12-14] MEDS ORDERED: Carvedilol 6.25 MG Tab PO ONE (19:00)
[2024-12-14 19:55] VITALS: BP 115/76
[2024-12-14 19:58] LABS: Source, Urine Clean Catch
[2024-12-14 20:07] LABS: Bilirubin, Urine Neg (Neg); Blood, Urine Neg (Neg); Glucose Qualitative, Urine Neg (Neg); Ketones, Urine Neg (Neg); Leukocyte Esterase, Urine 2+ (Neg); Nitrite, Urine Neg (Neg); Protein, Urine Neg (Neg); Urobilinogen, Urine NORM (Normal)
[2024-12-14 20:23] LABS: Appearance, Urine Clear (Clear); Color, Urine Yellow (P-Yellow)
[2024-12-14 20:24] LABS: Bacteria Few /hpf; Red Blood Cells, Urine Not Seen /hpf (0-2); Squamous Epithelial Cells Few /hpf (Few)
== END 2024-12-14 20:06 | disposition home or self-care (01) ==
LOC: ER 13:07
PROVIDERS: Physician Assistant; Student in an Organized Health Care Education/Training Program
DX: R00.0 Tachycardia, unspecified (principal); I48.91 Unspecified atrial fibrillation; J44.9 Chronic obstructive pulmonary disease, unspecified; Z87.891 Personal history of nicotine dependence; Z88.1 Allergy status to other antibiotic agents; Z88.8 Allergy status to other drugs, medicaments and biological substances; Z79.899 Other long term (current) drug therapy; Z79.02 Long term (current) use of antithrombotics/antiplatelets
CPT/HCPCS: 71046; 80053; 81001; 85025; 93005; 93010; 99285-25; A9270